=== PATIENT | female | born 1995 | race Caucasian/White ===

== ENCOUNTER → 2020-10-15 10:24 | Outpatient (CLI) | payer BC, SELFPAY ==
--- NOTE | ~2020-10-15 | US_ITS ---
US breast RT complete DATE: 10/15/2020 10:42 INDICATION: Right breast lump at 6:00. Maternal grandmother had breast cancer 2 times, in her 30s and 70s. Patient has HER 2 gene mutation. TECHNIQUE: High-resolution real-time imaging of the complete right breast COMPARISON: None FINDINGS: No suspicious mass or shadowing, cyst or other significant sonographic finding is noted. IMPRESSION: BI-RADS Category 1: Negative Reviewed, dictated and finalized at [facility]. Reviewed, dictated and finalized at [facility].
== END ==
PROVIDERS: Visit Provider Advanced Practice Midwife
DX: N63.14 Unspecified lump in the right breast, lower inner quadrant (principal)
CPT/HCPCS: 76641

== ENCOUNTER → 2021-05-13 08:14 | Outpatient (CLI) | payer BC, SELFPAY ==
--- NOTE | ~2021-05-13 | US_ITS ---
US axilla LT 05/13/2021 08:34 Indication: Palpable left axillary abnormality. Procedure: High-resolution Limited ultrasound of the left axilla Comparison: No prior studies for comparison. Findings: In the area of palpable concern in the left axilla/lateral chest wall there is an oval circ umscribed hyperechoic mass measuring 11 x 7 x 11 mm. No internal vascularity or significant posterior features. No other masses. No fluid collections or cysts. Impression: 1: Oval hyperechoic circumscribed left axillary mass measuring 11 mm maximum dimension, most likely b enign atypical lymph node or lipoma. BI-RADS CATEGORY 3-PROBABLY BENIGN FINDING RECOMMENDATION: Six-month follow-up Limited left axillary ultrasound recommended. Reviewed, dictated and finalized at [facility]. [employer] Impression: 1: Oval hyperechoic circumscribed left axillary mass measuring 11 mm maximum di mension, most likely benign atypical lymph node or lipoma. BI-RADS CATEGORY 3-PROBABLY BENIGN FINDING RECOMMENDATION: Six-month follow-up Limited left axillary ultrasound [facility]
== END ==
PROVIDERS: Visit Provider Nurse Practitioner Obstetrics & Gynecology
DX: N63.32 Unspecified lump in axillary tail of the left breast (principal)
CPT/HCPCS: 76882